=== PATIENT | male | born 1985 | race African-American/Black ===

== ENCOUNTER 2023-12-10 07:37 | Emergency (ER) | payer OTHER | END 2023-12-10 08:21 | disposition home or self-care (01) | LOC: CSHERS 07:37 | DX: S40.012A Contusion of left shoulder, initial encounter (principal); F17.210 Nicotine dependence, cigarettes, uncomplicated; W01.0XXA Fall on same level from slipping, tripping and stumbling without subsequent striking against object, initial encounter ==